=== PATIENT | female | born 1985 | race Caucasian/White ===

== ENCOUNTER 2022-10-19 08:29 | Outpatient (CLI) | payer BC, SELFPAY | END 2022-10-19 08:30 | disposition home or self-care (01) | PROVIDERS: PCP Physician Assistant Medical; Visit Provider Physician Assistant Medical | DX: Z00.00 Encounter for general adult medical examination without abnormal findings (principal); Z13.6 Encounter for screening for cardiovascular disorders | CPT/HCPCS: 80053; 80061 ==

== ENCOUNTER 2023-03-14 11:14 | Outpatient (CLI) | payer BC, SELFPAY ==
--- NOTE | 2023-03-14 11:30 | CRLHL7_ITS ---
For Patients: As a result of the Century Cures Act, medical imaging exams and procedure reports are released immediately into your electronic medical record. You may view this report before your referring provider. If you have questions, please contact your health care provider. BILATERAL SCREENING MAMMOGRAM WITH COMPUTER-AIDED DETECTION AND TOMOSYNTHESIS TECHNIQUE: CC and MLO views were obtained. These mammographic images have been obtained using full-field digital technique. These mammographic images were interpreted with the benefit of computer-aided detection. Breast Tomosynthesis was used in this interpretation. COMPARISON FILM: Baseline. FINDINGS: The breasts are heterogeneously dense, which may obscure small masses IMPRESSION: There is no radiographic evidence for malignancy. ASSESSMENT: BI-RADS Category 1: Negative RECOMMENDATION: Routine screening mammogram in 1 year. A lay language report of this examination will be provided to the patient. Emmett Flynn M.D. Diagnostic Radiologist [email or web address] Transcribed: 3:31 [email or web address]/Dictated by: Emmett Flynn MD @ 03/14/2023 1:18:00 PM (Electronically Signed)
== END 2023-03-14 11:15 | disposition home or self-care (01) ==
LOC: MAMMO 11:15
PROVIDERS: PCP Physician Assistant Medical; Visit Provider Physician Assistant Medical
DX: Z12.31 Encounter for screening mammogram for malignant neoplasm of breast (principal); R92.2 Inconclusive mammogram
CPT/HCPCS: 77063; 77067

== ENCOUNTER 2023-10-15 09:23 | Outpatient (CLI) | payer BC, SELFPAY | END 2023-10-15 09:24 | disposition home or self-care (01) | PROVIDERS: PCP Physician Assistant Medical; Visit Provider Physician Assistant | DX: Z13.220 Encounter for screening for lipoid disorders (principal); Z13.1 Encounter for screening for diabetes mellitus | CPT/HCPCS: 80061; 82947 ==

== ENCOUNTER 2024-04-08 15:25 | Outpatient (CLI) | payer BC, SELFPAY ==
--- NOTE | 2024-04-08 15:40 | CRLHL7_ITS ---
For Patients: As a result of the Century Cures Act, medical imaging exams and procedure reports are released immediately into your electronic medical record. You may view this report before your referring provider. If you have questions, please contact your health care provider. BILATERAL SCREENING MAMMOGRAM WITH COMPUTER-AIDED DETECTION AND TOMOSYNTHESIS TECHNIQUE: CC and MLO views were obtained. These mammographic images have been obtained using full-field digital technique. These mammographic images were interpreted with the benefit of computer-aided detection. Breast Tomosynthesis was used in this interpretation. COMPARISON FILM: 03/14/23. FINDINGS: The breasts are heterogeneously dense, which may obscure small masses IMPRESSION: There is no radiographic evidence for malignancy. ASSESSMENT: BI-RADS Category 1: Negative RECOMMENDATION: Routine screening mammogram in 1 year. A lay language report of this examination will be provided to the patient. Emmett Flynn M.D. Diagnostic Radiologist [email or web address] RON/Dictated by: Emmett Flynn MD @ 04/09/2024 9:03:00 AM (Electronically Signed)
== END 2024-04-08 15:26 | disposition home or self-care (01) ==
LOC: MAMMO 15:26
PROVIDERS: PCP Physician Assistant Medical; Visit Provider Physician Assistant
DX: Z12.31 Encounter for screening mammogram for malignant neoplasm of breast (principal); R92.2 Inconclusive mammogram
CPT/HCPCS: 77063; 77067

== ENCOUNTER 2024-10-28 08:32 | Outpatient (CLI) | payer BC, SELFPAY | END 2024-10-28 08:33 | disposition home or self-care (01) | LOC: NFLDREF 10-29 05:21 | PROVIDERS: PCP Physician Assistant Medical; Referring Provider Physician Assistant Medical; Visit Provider Physician Assistant | DX: Z13.6 Encounter for screening for cardiovascular disorders (principal); Z13.1 Encounter for screening for diabetes mellitus; Z13.29 Encounter for screening for other suspected endocrine disorder | CPT/HCPCS: 80061; 82947; 84443 ==

== ENCOUNTER 2025-01-08 09:19 | Outpatient (CLI) | payer BC, SELFPAY ==
[2025-01-08 16:08] LABS: Chlamydia DNA Amplified* NOT DETECTED (No Detected); GC DNA Amplified* NOT DETECTED (No Detected)
[2025-01-10 02:14] LABS: HPV Source Cervix; HPV, High Risk by TMA Not Detected
== END 2025-01-08 09:20 | disposition home or self-care (01) ==
PROVIDERS: PCP Physician Assistant Medical; Visit Provider Physician Assistant Medical
DX: R63.5 Abnormal weight gain (principal); N92.6 Irregular menstruation, unspecified; N95.1 Menopausal and female climacteric states
CPT/HCPCS: 83001; 84443; 87491; 87591; 87624; 87625; 88141; 88142

== ENCOUNTER 2025-01-13 14:46 | Outpatient (CLI) | payer BC, SELFPAY ==
--- NOTE | 2025-01-13 15:00 | CRLHL7_ITS ---
For Patients: As a result of the Century Cures Act, medical imaging exams and procedure reports are released immediately into your electronic medical record. You may view this report before your referring provider. If you have questions, please contact your health care provider. INDICATION: Irregular menstruation COMPARISON: None. TECHNIQUE: 2D kapadia-scale and color Doppler images were acquired of the pelvis using a transabdominal and transvaginal approach. Transvaginal imaging performed to better visualize the endometrial stripe and ovaries. FINDINGS: Posterior partially exophytic fibroid is present which measures 2.5 x 2.1 x 2.6 cm. Additional posterior fibroid measures 1.2 x 1.3 x 1.3 cm. Uterus measures 7.5 cm in length by 3.7 cm in AP diameter by 4.4 cm in transverse dimension. The endometrial lining measures 3.2 mm in composite thickness. The right ovary measures 3.2 x 1.1 x 2.1 cm in size and the left ovary measures 3.2 x 1.9 x 2.2 cm. The ovaries demonstrate normal arterial and venous blood flow on color Doppler analysis. There are no suspicious fluid collections within the cul-de-sac. IMPRESSION: Endometrial thickness 3.2 millimeters. Posterior subserosal fibroids measure up to 2.6 cm. Dictated by Emmett Flynn MD @ 01/14/2025 6:50:58 AM (Electronically Signed)
== END 2025-01-13 14:47 | disposition home or self-care (01) ==
LOC: US 14:47
PROVIDERS: PCP Physician Assistant Medical; Visit Provider Physician Assistant Medical
DX: N92.6 Irregular menstruation, unspecified (principal); R93.89 Abnormal findings on diagnostic imaging of other specified body structures; D25.2 Subserosal leiomyoma of uterus
CPT/HCPCS: 76830; 76856

== ENCOUNTER 2025-05-12 17:26 | Outpatient (CLI) | payer OTHER, SELFPAY ==
--- NOTE | 2025-05-12 17:40 | CRLHL7_ITS ---
For Patients: As a result of the Century Cures Act, medical imaging exams and procedure reports are released immediately into your electronic medical record. You may view this report before your referring provider. If you have questions, please contact your health care provider. INDICATION: BILATERAL SCREENING MAMMOGRAM, ASYMPTOMATIC 40 Y/O FEMALE COMPARISON: , 04/08/2024, 03/14/2023 TECHNIQUE: Digital mammogram in CC and MLO projections including computer-aided detection (CAD) and tomosynthesis. BREAST COMPOSITION: The breasts are heterogeneously dense, which may obscure small masses. FINDINGS: No suspicious findings. ASSESSMENT: BI-RADS 1 Negative RECOMMENDATION: Annual screening mammogram. A lay language report of this examination will be provided to the patient. Dictated by: Emmett Flynn MD @ 05/13/2025 09:26:55 (Electronically Signed)
== END 2025-05-12 17:27 | disposition home or self-care (01) ==
LOC: MAMMO 17:27
PROVIDERS: PCP Physician Assistant Medical; Visit Provider Physician Assistant
DX: Z12.31 Encounter for screening mammogram for malignant neoplasm of breast (principal); R92.333 Mammographic heterogeneous density, bilateral breasts
CPT/HCPCS: 77063; 77067

== ENCOUNTER 2025-05-27 11:45 | Outpatient (CLI) | payer OTHER, SELFPAY | END 2025-05-27 11:46 | disposition home or self-care (01) | LOC: LKVREF 11:45 | PROVIDERS: PCP Physician Assistant Medical; Visit Provider Physician Assistant Medical | DX: N89.8 Other specified noninflammatory disorders of vagina (principal) | CPT/HCPCS: 87109 ==